=== PATIENT | male | born 1975 | race Asian ===

== ENCOUNTER 2016-12-03 19:49 | Emergency (ER) | payer OTHER ==
[~2016-12-03] VITALS: Ht 188 cm; Wt 99.8 kg
[2016-12-03 20:51] VITALS: BP 146/90
== END 2016-12-03 20:51 | disposition home or self-care (01) ==
LOC: ED 19:49
DX: L50.9 Urticaria, unspecified (principal); H57.8 Other specified disorders of eye and adnexa
CPT/HCPCS: J7512